=== PATIENT | male | born 1940 | race Hispanic/Latino ===

== ENCOUNTER 2017-04-29 07:15 | Day surgery (SDC) | payer MEDICARE ==
[2017-04-29] MEDS ORDERED: Lidocaine Hydrochloride 5 ML INJ ONE (09:19)
[2017-04-29] MEDS ORDERED: Propofol 10 mg/ml Inj (20 ML) ONE ×2 (09:19)
--- NOTE | 2017-04-29 09:29 | CP.SDSHP ---
Same Day Surgery H & P - History Proposed Procedure: Colonoscopy Pre-Op Diagnosis: Screening exam - Previous Medical/Surgical History Comments: BPH. IBS. Diverticulosis - Allergies Allergies: Allergies HAYFEVER Allergy (Uncoded 04/29/17 08:46) CONGESTION - Current Medications Current Medications: reviewed, per reconciliation - Physical Exam General Appearance: wdwn nad Vital Signs: Vital Signs 04/29/17 08:00 Temperature 97.4 F L Pulse Rate 66 Respiratory 19 Rate Blood Pressure 122/56 L O2 Sat by Pulse 98 Oximetry Mental Status: Alert & Oriented x3 Heart: WNL Lungs: WNL GI: WNL - {Optional Preform as Required} Abdomen: WNL - Impression Impression: screening colonoscopy Pt. Evaluated Today:Candidate for Anesthesia & Procedure: Yes - Date & Time Date: 04/29/17 Time: 09:30 Short Stay Discharge - Short Stay Discharge Admitting Diagnosis/Reason for Visit: SCREENING Disposition: HOME/ ROUTINE
[2017-04-29] MEDS ORDERED: Lactated Ringer's 500 ML IV SCH (09:30)
[2017-04-29] MEDS ORDERED: Lactated Ringer's 500 ML IV ONE ×2 (09:42)
[2017-04-29 14:03] VITALS: BP 101/56; PULSE 56; RESP 13; TEMP 97.1; O2SAT 98
== END 2017-04-29 11:25 | disposition home or self-care (01) ==
LOC: C.ENDO 07:15
PROVIDERS: ATTEND Internal Medicine Gastroenterology
DX: K57.30 Diverticulosis of large intestine without perforation or abscess without bleeding (principal); K64.8 Other hemorrhoids; D12.4 Benign neoplasm of descending colon
CPT/HCPCS: 45380; 45388; 88305; J2704; J7120